=== PATIENT | female | born 1975 | race Caucasian/White ===

== ENCOUNTER → 2016-09-13 | Outpatient (CLI) | payer BC ==
[~2016-09-13] MED LIST: ALBUAER2 INH; AMOX875T PO; CETI10TA84 PO; LEVO-217 PO; PRED20TA PO; SUMA50TA15 PO; [UNRECOGNIZED DRUG - CODE] PO
--- NOTE | 2016-09-13 13:50 | DIAGNOSTIC IMAGING REPORT ---
EXAMINATION: RENAL ULTRASOUND CLINICAL HISTORY: Left-sided pain and CVA tenderness COMPARISON STUDY: 08/26/2013 FINDINGS: The right kidney measures 9.9 cm. The left kidney measures 9.8 cm. There is no evidence of hydronephrosis. There are no renal masses. The bladder was nearly empty at the time of scanning. Neither ureteral jet was visualized. IMPRESSION : 1. No renal masses identified. No evidence of hydronephrosis. Electronically signed by: Patrice Carlos M.D. 09/13/2016 1:49 PM Dictated Date/Time: 09/13/2016 1:48 PM
== END | disposition home or self-care (01) ==
LOC: C.ULTRBC 13:22
PROVIDERS: ATTEND Nurse Practitioner Family
DX: M54.9 Dorsalgia, unspecified (principal); R10.32 Left lower quadrant pain; Z87.42 Personal history of other diseases of the female genital tract

== ENCOUNTER → 2016-10-30 | Outpatient (CLI) | payer BC ==
--- NOTE | 2016-10-30 09:30 | DIAGNOSTIC IMAGING REPORT ---
ABDOMINAL ULTRASOUND COMPLETE HISTORY: Generalized abdominal pain.. COMPARISON: Abdomen and pelvis CT 02/24/2014. FINDINGS: Pancreas: The pancreas demonstrates a normal echotexture. Liver: Unremarkable. Gallbladder: No gallbladder wall thickening. No gallstones. CBD: 2 mm. Kidneys: No hydronephrosis. The right kidney measures 9.3 cm the left kidney measures 9.8 cm. Spleen: Normal in size measuring 8.7 cm in length. Aorta: Normal in caliber. IVC: Patent. IMPRESSION: No significant abnormality identified within the within the abdomen. Electronically signed by: Shaka Chen M.D. 10/30/2016 9:29 AM Dictated Date/Time: 10/30/2016 9:28 AM
== END | disposition home or self-care (01) ==
LOC: C.ULTRBC 08:43
PROVIDERS: ATTEND Family Medicine
DX: R10.9 Unspecified abdominal pain (principal)

== ENCOUNTER → 2017-05-12 | Outpatient (CLI) | payer BC ==
--- NOTE | 2017-05-12 13:18 | DIAGNOSTIC IMAGING REPORT ---
ULTRASOUND SOFT TISSUES NECK CLINICAL HISTORY: Palpable lymph node. COMPARISON STUDY: No finding. FINDINGS: Real-time, grayscale, and color flow sonography of the right subauricular soft tissues is performed at the indicated site of interest. There is a tiny hypoechoic nodule in the subcutaneous soft tissues at this site measuring up to 6 cm. This likely represents a tiny lymph node. This is not pathologically enlarged by size criteria. No concerning mass or fluid collection is seen. IMPRESSION: The finding of palpable concern corresponds to a 6 mm hypoechoic nodule. This likely represents a small lymph node and is of doubtful significance. This nodule is too small for fine-needle aspiration and clinical follow-up will be required. Electronically signed by: Basim Talley M.D. 05/12/2017 1:16 PM Dictated Date/Time: 05/12/2017 1:14 PM
== END | disposition home or self-care (01) ==
LOC: C.ULTRBC 12:51
PROVIDERS: ATTEND Family Medicine
DX: R59.1 Generalized enlarged lymph nodes (principal)